=== PATIENT | male | born 1945 | race Caucasian/White ===

== ENCOUNTER 2017-07-17 10:29 | Emergency (ER) | payer MEDICARE, BC ==
[2017-07-17 11:01] LABS: BASOPHILS 0.1 % (0-2); EOSINOPHILS 1.3 % (0-7); HEMATOCRIT 38.5 % (42.0-54.0); HEMOGLOBIN 13.8 g/dL (13.5-17.5); IMMATURE GRANULOCYTES 0.1 % (0-5); MCH 31.2 pg (26.0-34.0); MCHC 35.8 g/dL (31.0-37.0); MCV 86.9 fL (80.0-100.0); MEAN PLATELET VOLUME 11.4 fL (7.4-10.4); MONOCYTES 5.5 % (2-11); PLATELET COUNT 162 10x3/uL (130-400); RBC 4.43 10x6/uL (4.20-6.10); WBC 7.5 10x3/uL (4.8-10.8)
[2017-07-17 11:06] LABS: ALBUMIN 3.3 g/dL (3.4-5.0); ALKALINE PHOSPHATASE 49 U/L (46-116); ALT (SGPT) 39 U/L (10-68); CALC OSMOLALITY 306 mosm/kg (275-300); CALCIUM 8.9 mg/dL (8.5-10.1); CARBON DIOXIDE 23.5 mmol/L (21.0-32.0); CHLORIDE - SERUM 112 mmol/L (98-107); CREATININE - SERUM 2.3 mg/dL (0.6-1.3); GLUCOSE 172 mg/dL (74-106); POTASSIUM - SERUM 4.2 mmol/L (3.5-5.1); PROTEIN - SERUM 6.9 g/dL (6.4-8.2); SODIUM 148 mmol/L (136-145); UREA NITROGEN 37 mg/dL (7-18); eGFR NON AFRICAN AMERICAN 30 mL/min (90-120)
[2017-07-17 11:14] LABS: CREATINE KINASE 107 UL (21-232); PRO BNP 43 pg/mL (0-125); TROPONIN-I < 0.017 ng/mL (0.000-0.060)
[2017-07-17 12:31] LABS: APPEARANCE HAZY (CLEAR); BILIRUBIN NEGATIVE (NEGATIVE); COLOR YELLOW (YELLOW); GLUCOSE 50 mg/dL (NEGATIVE); KETONE NEGATIVE (NEGATIVE); NITRITE NEGATIVE (NEGATIVE); PROTEIN 3+ mg/dL (NEGATIVE); UROBILINOGEN NORMAL (NORMAL)
[2017-07-17 12:33] LABS: BACTERIA FEW /hpf (NONE SEEN); EPITHELIAL CELLS RARE /hpf (0-5); MUCUS <1+ /lpf (NONE SEEN); RED CELLS - URINE OCC /hpf (0-5)
== END 2017-07-17 19:19 | disposition home or self-care (01) ==
LOC: D.ER 10:29
PROVIDERS: Emergency Medicine; Nurse Practitioner Family
DX: R53.1 Weakness (principal); R06.00 Dyspnea, unspecified